=== PATIENT | male | born 1955 | race Caucasian/White ===

== ENCOUNTER 2019-04-28 23:34 | Emergency (ER) | payer MEDICAID ==
[~2019-04-28] VITALS: Ht 154.9 cm; Wt 72.0 kg
[~2019-04-28 23:34] MED LIST: AMLO10TA80 PO; ASPI-1160 PO; BENA10TA10 PO; FOLI1TAB87 PO; LISI-604 PO; METF-414 PO; METF-416 PO; NVLG73 SUBCUT; OMEP20CA5 PO; PIOG30TA10 PO; SIMV20TA6 PO; TRAM50TA94 PO
[2019-04-29 01:32] LABS: CLARITY URINE CLEAR (CLEAR); COLOR URINE YELLOW (YELLOW); KETONES URINE NEGATIVE (NEGATIVE); LEUKOCYTE ESTERASE URINE NEGATIVE (NEGATIVE); NITRITE URINE NEGATIVE (NEGATIVE); OCCULT BLOOD URINE TRACE (NEGATIVE); PH URINE 5.5 (4.5-8.0); PROTEIN URINE 3+ (NEGATIVE); SPECIFIC GRAVITY URINE 1.013 (1.005-1.030); UROBILINOGEN URINE 0.2 E.U./dL (0.2-1.0)
[2019-04-29] MEDS ORDERED: KETOROLAC 30MG/ML VIAL IV SCH (02:31)
[2019-04-29] MEDS ORDERED: SODIUM CHLORIDE 0.9% 1,000 ML IV ONE (02:31)
[2019-04-29 03:04] LABS: BASOPHILS % 0.9 % (0.0-2.0); EOSINOPHILS % 6.4 % (0.0-5.0); HEMATOCRIT. 35.9 % (42.0-52.0); HEMOGLOBIN. 12.2 g/dL (14.0-18.0); LYMPHOCYTES % 23.6 % (20.0-50.0); MEAN CORPUSCULAR HEMOGLOBIN 31.8 pg (28.0-32.0); MEAN CORPUSCULAR VOLUME 93.4 fL (80.0-94.0); MEAN PLATELET VOLUME 9.4 fl (7.4-10.4); MONOCYTES % 7.3 % (2.0-8.0); NEUTROPHILS % 61.8 % (40.0-76.0); PLATELET 250 x1000/uL (130-400); RED BLOOD CELL COUNT 3.85 mill/uL (4.7-6.1); RED CELL DISTRIBUTION WIDTH 13.3 % (11.6-14.6)
[2019-04-29 03:11] LABS: CHLORIDE 110 mEq/L (98-107)
[2019-04-29 03:12] LABS: PROTHROMBIN TIME 9.8 sec (9.6-11.0)
[2019-04-29] MEDS ORDERED: HYDROCODONE/ACETAMINOPHEN 5/325MG TABLET PO ONE (04:15)
[2019-04-29 05:40] VITALS: BP 129/69
== END 2019-04-29 06:01 | disposition home or self-care (01) ==
LOC: ER 23:34
DX: M54.16 Radiculopathy, lumbar region (principal); N28.9 Disorder of kidney and ureter, unspecified; E11.9 Type 2 diabetes mellitus without complications; I10 Essential (primary) hypertension; E78.00 Pure hypercholesterolemia, unspecified; Z79.82 Long term (current) use of aspirin; Z79.84 Long term (current) use of oral hypoglycemic drugs; Z79.899 Other long term (current) drug therapy; Z79.4 Long term (current) use of insulin; Z87.438 Personal history of other diseases of male genital organs; Z98.890 Other specified postprocedural states
CPT/HCPCS: 36415; 74176; 80053; 81003; 82962; 83690; 85025; 85610; 96374; 99284; J1885; Z7610

== ENCOUNTER 2019-11-15 17:18 | Inpatient (IN) | payer MEDICAID ==
[~2019-11-15] VITALS: Ht 157.5 cm; Wt 73.5 kg
[~2019-11-15 17:18] MED LIST changes: -BENA10TA10 PO; +BENA10TA74 PO; +OMEP20CA14 PO; -OMEP20CA5 PO; +SIMV-43 PO; -SIMV20TA6 PO
[2019-11-15] MEDS ORDERED: SODIUM CHLORIDE 0.9% 1,000 ML IV ONE (18:24)
[2019-11-15] MEDS ORDERED: DEXTROSE 50% WATER 50ML SYRINGE IV ONE (18:30)
[2019-11-15] MEDS ORDERED: ONDANSETRON HCL 4MG/2ML INJ IV ONE ×2 (18:30→20:30)
[2019-11-15 18:44] LABS: BASOPHILS % 0.8 % (0.0-2.0); EOSINOPHILS % 1.1 % (0.0-5.0); HEMATOCRIT. 35.5 % (42.0-52.0); LYMPHOCYTES % 10.3 % (20.0-50.0); MEAN CORPUSCULAR HEMOGLOBIN 31.9 pg (28.0-32.0); MEAN CORPUSCULAR VOLUME 94.6 fL (80.0-94.0); MEAN PLATELET VOLUME 8.8 fl (7.4-10.4); MONOCYTES % 5.6 % (2.0-8.0); NEUTROPHILS % 82.2 % (40.0-76.0); PLATELET 245 x1000/uL (130-400); RED BLOOD CELL COUNT 3.75 mill/uL (4.7-6.1); RED CELL DISTRIBUTION WIDTH 13.2 % (11.6-14.6)
[2019-11-15 18:49] LABS: CHLORIDE 112 mEq/L (98-107)
[2019-11-15 18:53] LABS: AMYLASE 95 IU/L (25-115)
[2019-11-15 18:54] LABS: ETHANOL BLOOD < 10 mg/dL
[2019-11-15 19:02] LABS: CREATINE KINASE 362 IU/L (39-308); CREATINE KINASE MB FRACTION 4.9 ng/mL (0.5-3.6)
[2019-11-15 19:23] LABS: CLARITY URINE CLEAR (CLEAR); COLOR URINE YELLOW (YELLOW); KETONES URINE NEGATIVE (NEGATIVE); LEUKOCYTE ESTERASE URINE NEGATIVE (NEGATIVE); NITRITE URINE NEGATIVE (NEGATIVE); OCCULT BLOOD URINE TRACE (NEGATIVE); PROTEIN URINE 3+ (NEGATIVE); SPECIFIC GRAVITY URINE 1.014 (1.005-1.030); UROBILINOGEN URINE 0.2 E.U./dL (0.2-1.0)
[2019-11-15 19:41] LABS: *AMPHETAMINES SCREEN URINE NEGATIVE (NEGATIVE); *BARBITURATES SCREEN URINE NEGATIVE (NEGATIVE); *BENZODIAZEPINES SCREEN URINE NEGATIVE (NEGATIVE); *COCAINE SCREEN URINE NEGATIVE (NEGATIVE); METHADONE URINE SCREEN NEGATIVE (NEGATIVE); OPIATES URINE SCREEN NEGATIVE (NEGATIVE)
[2019-11-15 19:42] LABS: CANNABINOID URINE SCREEN NEGATIVE (NEGATIVE); PHENCYCLIDINE URINE SCREEN NEGATIVE (NEGATIVE)
[2019-11-15] MEDS ORDERED: HYDRALAZINE 20MG/ML VIAL IV ONE (22:15)
[2019-11-16 00:15] VITALS: BP 135/77
[2019-11-16] MEDS ORDERED: DEXTROSE 50% WATER 50ML SYRINGE IV PRN (04:00)
[2019-11-16] MEDS ORDERED: ACETAMINOPHEN 325MG TABLET PO PRN (04:00)
[2019-11-16 06:23] VITALS: BP 127/67
[2019-11-16] MEDS: BLOOD SUGAR DIAGNOSTIC STRIP TEST SCH ×4 (06:46→20:53)
[2019-11-16] MEDS: OMEPRAZOLE 20MG CAPSULE EXTENDED RELEASE PO SCH (07:02)
[2019-11-16] MEDS ORDERED: INSULIN LISPRO 100 UNITS/ML SUBCUT SCH (07:40)
[2019-11-16 07:57] VITALS: BP 135/73
[2019-11-16] MEDS: ASPIRIN 81MG EC TABLET PO SCH (08:48)
[2019-11-16] MEDS: LISINOPRIL 20MG TABLET PO SCH (08:49)
[2019-11-16] MEDS: AMLODIPINE 10MG TABLET PO SCH (08:49)
[2019-11-16] MEDS ORDERED: BENAZEPRIL 10MG TABLET PO SCH (09:00)
[2019-11-16] MEDS ORDERED: MEDICATION NOT ON FORMULARY EA (Simvastatin 20 MG) PO SCH (09:00)
[2019-11-16 12:00] VITALS: BP 125/57
[2019-11-16 13:22] LABS: BASOPHILS % 0.8 % (0.0-2.0); EOSINOPHILS % 4.3 % (0.0-5.0); HEMOGLOBIN. 10.9 g/dL (14.0-18.0); LYMPHOCYTES % 18.8 % (20.0-50.0); MEAN CORPUSCULAR HEMOGLOBIN 31.7 pg (28.0-32.0); MEAN CORPUSCULAR VOLUME 95.4 fL (80.0-94.0); MONOCYTES % 8.7 % (2.0-8.0); NEUTROPHILS % 67.4 % (40.0-76.0); PLATELET 227 x1000/uL (130-400); RED BLOOD CELL COUNT 3.46 mill/uL (4.7-6.1); RED CELL DISTRIBUTION WIDTH 13.1 % (11.6-14.6)
[2019-11-16] MEDS: SODIUM CHLORIDE 0.45% 1,000 ML IV SCH (14:26)
[2019-11-16 16:00] VITALS: BP 139/75
[2019-11-16 20:00] VITALS: BP 137/69
[2019-11-16] MEDS ORDERED: ATORVASTATIN CALCIUM 10MG TABLET PO SCH (21:00)
[2019-11-17] VITALS: BP 128/66
[2019-11-17] MEDS: SODIUM CHLORIDE 0.45% 1,000 ML IV SCH ×2 (00:06→10:32)
[2019-11-17 04:00] VITALS: BP 151/75
[2019-11-17] MEDS: OMEPRAZOLE 20MG CAPSULE EXTENDED RELEASE PO SCH (06:28)
[2019-11-17] MEDS: BLOOD SUGAR DIAGNOSTIC STRIP TEST SCH ×2 (06:28→12:06)
[2019-11-17 06:35] LABS: BASOPHILS % 1.2 % (0.0-2.0); EOSINOPHILS % 7.2 % (0.0-5.0); HEMATOCRIT. 32.6 % (42.0-52.0); HEMOGLOBIN. 10.7 g/dL (14.0-18.0); LYMPHOCYTES % 25.6 % (20.0-50.0); MEAN CORPUSCULAR HEMOGLOBIN 31.7 pg (28.0-32.0); MEAN CORPUSCULAR VOLUME 95.9 fL (80.0-94.0); MEAN PLATELET VOLUME 9.1 fl (7.4-10.4); MONOCYTES % 9.6 % (2.0-8.0); NEUTROPHILS % 56.4 % (40.0-76.0); PLATELET 233 x1000/uL (130-400); RED CELL DISTRIBUTION WIDTH 13.3 % (11.6-14.6)
[2019-11-17] MEDS: ASPIRIN 81MG EC TABLET PO SCH (07:48)
[2019-11-17] MEDS: LISINOPRIL 20MG TABLET PO SCH (07:48)
[2019-11-17] MEDS: AMLODIPINE 10MG TABLET PO SCH (07:48)
[2019-11-17 12:00] VITALS: BP 160/71
[2019-11-17] MEDS ORDERED: BLOOD SUGAR DIAGNOSTIC STRIP TEST SCH (12:10)
[2019-11-17] MEDS ORDERED: DEXTROSE 50% WATER 50ML SYRINGE IV PRN (12:15)
[2019-11-17] MEDS ORDERED: INSULIN LISPRO 100 UNITS/ML SUBCUT SCH (12:40)
[2019-11-17] MEDS ORDERED: PNEUMOCOCCAL 23-VAL P-SAC VAC 0.5 ML IM ONE (16:30)
== END 2019-11-17 16:57 | disposition home or self-care (01) | DRG 420 ==
LOC: ER 18:00 → ENRESERV 23:42 → 8WST 11-16 00:16
PROVIDERS: ADMIT Internal Medicine; ATTEND Internal Medicine
DX: E11.649 Type 2 diabetes mellitus with hypoglycemia without coma (principal); G93.41 Metabolic encephalopathy; N18.4 Chronic kidney disease, stage 4 (severe); E11.22 Type 2 diabetes mellitus with diabetic chronic kidney disease; E87.8 Other disorders of electrolyte and fluid balance, not elsewhere classified; D64.9 Anemia, unspecified; E78.00 Pure hypercholesterolemia, unspecified; E78.5 Hyperlipidemia, unspecified; I12.9 Hypertensive chronic kidney disease with stage 1 through stage 4 chronic kidney disease, or unspecified chronic kidney disease; I16.0 Hypertensive urgency; M62.82 Rhabdomyolysis; N40.0 Benign prostatic hyperplasia without lower urinary tract symptoms; Z79.4 Long term (current) use of insulin; Z79.899 Other long term (current) drug therapy
CPT/HCPCS: 36415; 71045; 80048; 80053; 80305; 80320; 81003; 82150; 82550; 82553; 82962; 83036; 83880; 84443; 84484; 85025; 87804; 90732; 93005; 93970; 99285; J0360; J1815; J2405; J7030; G0480

== ENCOUNTER 2020-06-15 14:31 | Emergency (ER) | payer MEDICAID ==
[~2020-06-15] VITALS: Ht 157.5 cm; Wt 71.0 kg
[~2020-06-15 14:31] MED LIST changes: -BENA10TA74 PO; +LIDOCAINE HCL/PF 1% 2ML VIAL ONE; -METF-414 PO; -METF-416 PO; -NVLG73 SUBCUT; -PIOG30TA10 PO
[2020-06-15] MEDS ORDERED: ONDANSETRON HCL 4MG/2ML INJ IV ONE (15:00)
[2020-06-15] MEDS ORDERED: SODIUM CHLORIDE 0.9% 1,000 ML IV ONE ×2 (15:00→17:30)
[2020-06-15 15:15] LABS: BASOPHILS % 0.5 % (0.0-2.0); CLARITY URINE CLEAR (CLEAR); COLOR URINE YELLOW (YELLOW); EOSINOPHILS % 2.3 % (0.0-5.0); HEMOGLOBIN. 13.3 g/dL (14.0-18.0); KETONES URINE NEGATIVE (NEGATIVE); LEUKOCYTE ESTERASE URINE NEGATIVE (NEGATIVE); LYMPHOCYTES % 12.6 % (20.0-50.0); MEAN CORPUSCULAR VOLUME 93.9 fL (80.0-94.0); MEAN PLATELET VOLUME 9.9 fl (7.4-10.4); NEUTROPHILS % 79.6 % (40.0-76.0); NITRITE URINE NEGATIVE (NEGATIVE); OCCULT BLOOD URINE TRACE (NEGATIVE); PH URINE 6.5 (4.5-8.0); PLATELET 207 x1000/uL (130-400); PROTEIN URINE 4+ (NEGATIVE); RED BLOOD CELL COUNT 4.16 mill/uL (4.7-6.1); RED CELL DISTRIBUTION WIDTH 13.4 % (11.6-14.6); SPECIFIC GRAVITY URINE 1.021 (1.005-1.030); UROBILINOGEN URINE 0.2 E.U./dL (0.2-1.0)
[2020-06-15 15:18] LABS: CHLORIDE 104 mEq/L (98-107)
[2020-06-15 15:21] LABS: INR 0.9; PROTHROMBIN TIME 9.8 sec (9.6-11.0)
[2020-06-15] MEDS ORDERED: INSULIN REGULAR (HUMULIN R) UD 100 UNITS/ML SYR SUBCUT ONE (16:00)
[2020-06-15] MEDS ORDERED: INSULIN REGULAR (HUMULIN R) 300UNITS/3ML SUBCUT NR (16:20)
[2020-06-15 16:28] LABS: BG BASE EXCESS -4.9 mmol/L (-2.0-2.0); BG CARBOXYHEMOGLOBIN 0.3 % (0.5-1.5); BG DEOXYHEMOGLOBIN 4.5 % (0.0-5.0); BG FRACTION INSPIRED OXYGEN 21; BG HCO3 ACT 20.7 mmol/L (22.0-26.0); BG METHEMOGLOBIN 0.3 % (0.0-1.5); BG OXYGEN SATURATION 95.5 % (92.0-98.5); BG OXYHEMOGLOBIN 94.9 % (94.0-97.0); BG PCO2 39.9 mmHg (35.0-45.0); BG PH 7.332 (7.350-7.450); BG SAMPLE SITE RIGHT BRACHIAL; BG TOTAL HEMOGLOBIN 12.8 g/dL (12.0-18.0); BG VENT MODE ROOM AIR
[2020-06-15] MEDS ORDERED: FAMOTIDINE 20MG/2ML VIAL IV NR (16:30)
[2020-06-15] MEDS ORDERED: AMLODIPINE 5MG TABLET PO ONE (16:45)
[2020-06-15 17:49] LABS: D-DIMER 0.82 mg/L FEU (<0.50)
[2020-06-15] MEDS ORDERED: HYDRALAZINE 20MG/ML VIAL IV SCH (18:30)
[2020-06-15 20:46] VITALS: BP 161/85
== END 2020-06-15 21:13 | disposition short-term general hospital (02) ==
LOC: ER 14:31
DX: N17.9 Acute kidney failure, unspecified (principal); E11.65 Type 2 diabetes mellitus with hyperglycemia; Z20.828 Contact with and (suspected) exposure to other viral communicable diseases; R06.02 Shortness of breath; R43.2 Parageusia; Z79.4 Long term (current) use of insulin
CPT/HCPCS: 36415; 36600; 71045; 80053; 81003; 82010; 82375; 82550; 82728; 82805; 82962; 83615; 83690; 83880; 84145; 84484; 85025; 85379; 85384; 85610; 86140; 87635; 93005; 96361; 96372; 96374; 96375; 99285; J0360; J1815; J2405; J3490

== ENCOUNTER 2021-02-15 14:42 | Inpatient (IN) | payer OTHER, MEDICAID ==
[~2021-02-15] VITALS: Ht 157.5 cm; Wt 70.3 kg
[~2021-02-15 14:42] MED LIST changes: +AMLO10TA4 MT; +ATOR10TA MT; +BLOO-1465 MT; +FAMO-135 PO; +FINA5TAB11 PO; +GLIP5TAB12 MT; +HYDR-4135 MT; +HYDR100T26 MT; +INSLIS SUBCUT; +INSU100I28 SQ; +LANC1COM2 MC; -LIDOCAINE HCL/PF 1% 2ML VIAL ONE; -LISI-604 PO; -OMEP20CA14 PO; +ONDA8TAB13 PO; +SIME125C PO; -SIMV-43 PO; +TAMS-11 PO; -TRAM50TA94 PO
[2021-02-15 15:59] LABS: CHLORIDE 112 mEq/L (98-107)
[2021-02-15 16:00] LABS: BASOPHILS % 0.8 % (0.0-2.0); EOSINOPHILS % 5.2 % (0.0-5.0); HEMOGLOBIN. 11.9 g/dL (14.0-18.0); LYMPHOCYTES % 17.4 % (20.0-50.0); MEAN CORPUSCULAR HEMOGLOBIN 33.1 pg (28.0-32.0); MEAN CORPUSCULAR VOLUME 94.5 fL (80.0-94.0); MEAN PLATELET VOLUME 9.7 fl (7.4-10.4); NEUTROPHILS % 69.6 % (40.0-76.0); PLATELET 225 x1000/uL (130-400); RED CELL DISTRIBUTION WIDTH 13.9 % (11.6-14.6)
[2021-02-15 16:02] LABS: INR 0.9
[2021-02-15] MEDS ORDERED: PIPERACILLIN SODIUM/TAZOBACTAM 4.5 G in DEXT 5% WATER 100 ML IV SCH (17:30)
[2021-02-15 22:18] VITALS: BP 188/89
[2021-02-15 23:27] VITALS: BP 188/84
[2021-02-16] VITALS: BP 189/85
[2021-02-16] MEDS ORDERED: DEXTROSE 50% WATER 50ML SYRINGE IV PRN (00:45)
[2021-02-16] MEDS: CLONIDINE 0.1MG TABLET PO PRN ×3 (01:15→18:20)
[2021-02-16] MEDS ORDERED: BENA10TA74 PO (02:45)
[2021-02-16] MEDS ORDERED: DOCU-150 PO (02:47)
[2021-02-16] MEDS ORDERED: FURO20TA4 PO (02:48)
[2021-02-16] MEDS ORDERED: INSU100I24 SQ (02:49)
[2021-02-16] MEDS ORDERED: INSU100I32 SQ (02:50)
[2021-02-16] MEDS ORDERED: VANCOMYCIN 500 MG PREMIX 100 ML IV SCH ×2 (03:00→10:00)
[2021-02-16 04:00] VITALS: BP 142/79
[2021-02-16] MEDS: PIPERACILLIN/TAZOBACTAM 2.25 G in DEXTROSE 5% WATER 50 ML IV SCH ×3 (04:29→18:20)
[2021-02-16] MEDS: PANTOPRAZOLE 40MG DR TABLET PO SCH (05:49)
[2021-02-16] MEDS: BLOOD SUGAR DIAGNOSTIC STRIP TEST SCH ×4 (05:49→20:52)
[2021-02-16] MEDS ORDERED: PIPERACILLIN/TAZOBACTAM 3.375 G/VIAL IV SCH (06:00)
[2021-02-16] MEDS ORDERED: INSULIN LISPRO 100 UNITS/ML SUBCUT SCH (07:15)
[2021-02-16 08:00] VITALS: BP 183/79
[2021-02-16] MEDS: FUROSEMIDE 40MG TABLET PO SCH (08:59)
[2021-02-16] MEDS: HEPARIN 5000 UNITS/ML VIAL SUBCUT SCH ×2 (09:00→21:25)
[2021-02-16] MEDS: PREDNISONE 20MG TABLET PO SCH (10:54)
[2021-02-16] MEDS: LISINOPRIL 10MG TABLET PO SCH (10:55)
[2021-02-16 12:00] VITALS: BP 160/91
[2021-02-16 12:02] LABS: BASOPHILS % 0.6 % (0.0-2.0); EOSINOPHILS % 6.4 % (0.0-5.0); HEMATOCRIT. 32.7 % (42.0-52.0); HEMOGLOBIN. 11.2 g/dL (14.0-18.0); LYMPHOCYTES % 19.2 % (20.0-50.0); MEAN CORPUSCULAR HEMOGLOBIN 32.4 pg (28.0-32.0); MEAN CORPUSCULAR VOLUME 94.6 fL (80.0-94.0); MEAN PLATELET VOLUME 9.7 fl (7.4-10.4); MONOCYTES % 6.6 % (2.0-8.0); NEUTROPHILS % 67.2 % (40.0-76.0); PLATELET 228 x1000/uL (130-400); RED BLOOD CELL COUNT 3.45 mill/uL (4.7-6.1); RED CELL DISTRIBUTION WIDTH 13.7 % (11.6-14.6)
[2021-02-16] MEDS: INSULIN LISPRO 100 UNITS/ML SUBCUT SCH ×5 (12:26→21:22)
[2021-02-16] MEDS ORDERED: LIDOCAINE HCL 1% 20ML VIAL (Pyxis) INJ ONE (14:35)
[2021-02-16 16:00] VITALS: BP 139/64
[2021-02-16 20:00] VITALS: BP 195/90
[2021-02-16] MEDS ORDERED: LABETALOL 5MG/ML SYR 20 MG/4 ML SYRINGE IV NR (20:15)
[2021-02-16] MEDS ORDERED: HYDRALAZINE HCL 50MG TABLET PO SCH ×2 (21:00)
[2021-02-16] MEDS: HYDRALAZINE HCL 50MG TABLET PO SCH (21:25)
[2021-02-16] MEDS: INSULIN GLARGINE UD 100 UNITS/ML SYR SUBCUT SCH (21:40)
[2021-02-17] VITALS: BP 150/73
[2021-02-17] MEDS ORDERED: CLONIDINE 0.2MG TABLET PO PRN (00:45)
[2021-02-17] MEDS: PIPERACILLIN/TAZOBACTAM 2.25 G in DEXTROSE 5% WATER 50 ML IV SCH ×3 (03:53→18:45)
[2021-02-17 04:00] VITALS: BP 181/90
[2021-02-17] MEDS ORDERED: LABETALOL 5MG/ML SYR 20 MG/4 ML SYRINGE IV SCH (04:15)
[2021-02-17] MEDS: BLOOD SUGAR DIAGNOSTIC STRIP TEST SCH ×4 (06:18→21:44)
[2021-02-17] MEDS: PANTOPRAZOLE 40MG DR TABLET PO SCH (06:26)
[2021-02-17] MEDS: INSULIN LISPRO 100 UNITS/ML SUBCUT SCH ×7 (06:27→21:31)
[2021-02-17 06:56] LABS: BASOPHILS % 0.2 % (0.0-2.0); EOSINOPHILS % 0.1 % (0.0-5.0); HEMATOCRIT. 33.2 % (42.0-52.0); HEMOGLOBIN. 11.1 g/dL (14.0-18.0); LYMPHOCYTES % 9.3 % (20.0-50.0); MEAN CORPUSCULAR HEMOGLOBIN 31.6 pg (28.0-32.0); MEAN CORPUSCULAR VOLUME 94.3 fL (80.0-94.0); MEAN PLATELET VOLUME 10.1 fl (7.4-10.4); MONOCYTES % 5.2 % (2.0-8.0); NEUTROPHILS % 85.2 % (40.0-76.0); PLATELET 215 x1000/uL (130-400); RED BLOOD CELL COUNT 3.52 mill/uL (4.7-6.1); RED CELL DISTRIBUTION WIDTH 13.5 % (11.6-14.6)
[2021-02-17 08:00] VITALS: BP 122/83
[2021-02-17] MEDS: HYDRALAZINE HCL 50MG TABLET PO SCH ×2 (09:34→21:00)
[2021-02-17] MEDS: FUROSEMIDE 40MG TABLET PO SCH (09:34)
[2021-02-17] MEDS: PREDNISONE 20MG TABLET PO SCH (09:34)
[2021-02-17] MEDS: HEPARIN 5000 UNITS/ML VIAL SUBCUT SCH ×2 (09:35→21:29)
[2021-02-17] MEDS: LISINOPRIL 10MG TABLET PO SCH (09:35)
[2021-02-17] MEDS: AMLODIPINE 10MG TABLET PO SCH (09:35)
[2021-02-17 12:00] VITALS: BP 160/69
[2021-02-17 16:00] VITALS: BP 90/56
[2021-02-17 20:00] VITALS: BP 102/55
[2021-02-17 20:04] LABS: HEMOGLOBIN. 10.2 g/dL (14.0-18.0); MEAN CORPUSCULAR HEMOGLOBIN 31.6 pg (28.0-32.0); MEAN CORPUSCULAR VOLUME 95.7 fL (80.0-94.0); MEAN PLATELET VOLUME 9.8 fl (7.4-10.4); PLATELET 227 x1000/uL (130-400); RED BLOOD CELL COUNT 3.24 mill/uL (4.7-6.1); RED CELL DISTRIBUTION WIDTH 13.8 % (11.6-14.6)
[2021-02-17 20:06] LABS: CHLORIDE 107 mEq/L (98-107)
[2021-02-17] MEDS: INSULIN GLARGINE UD 100 UNITS/ML SYR SUBCUT SCH (21:30)
[2021-02-17 21:43] LABS: PLATELET ESTIMATE NORMAL
[2021-02-18] VITALS: BP 119/51
[2021-02-18] MEDS: PIPERACILLIN/TAZOBACTAM 2.25 G in DEXTROSE 5% WATER 50 ML IV SCH ×3 (02:47→18:59)
[2021-02-18 04:00] VITALS: BP 147/71
[2021-02-18] MEDS: BLOOD SUGAR DIAGNOSTIC STRIP TEST SCH ×4 (06:53→21:33)
[2021-02-18] MEDS: FAMOTIDINE 20MG TABLET PO SCH (07:05)
[2021-02-18] MEDS: INSULIN LISPRO 100 UNITS/ML SUBCUT SCH ×7 (07:06→21:31)
[2021-02-18 08:00] VITALS: BP 160/80
[2021-02-18] MEDS: LISINOPRIL 10MG TABLET PO SCH (09:09)
[2021-02-18] MEDS: HYDRALAZINE HCL 50MG TABLET PO SCH ×2 (09:09→21:30)
[2021-02-18] MEDS: FUROSEMIDE 40MG TABLET PO SCH (09:09)
[2021-02-18] MEDS: AMLODIPINE 10MG TABLET PO SCH (09:10)
[2021-02-18] MEDS: PREDNISONE 20MG TABLET PO SCH (09:10)
[2021-02-18] MEDS: HEPARIN 5000 UNITS/ML VIAL SUBCUT SCH ×2 (09:10→21:31)
[2021-02-18 12:00] VITALS: BP 145/76
[2021-02-18] MEDS ORDERED: VANCOMYCIN 500 MG PREMIX 100 ML IV SCH (12:00)
[2021-02-18 16:00] VITALS: BP 142/68
[2021-02-18 16:58] LABS: HEMATOCRIT. 33.1 % (42.0-52.0); HEMOGLOBIN. 11.2 g/dL (14.0-18.0); MEAN CORPUSCULAR HEMOGLOBIN 31.7 pg (28.0-32.0); MEAN CORPUSCULAR VOLUME 94.1 fL (80.0-94.0); MEAN PLATELET VOLUME 9.7 fl (7.4-10.4); PLATELET 238 x1000/uL (130-400); RED BLOOD CELL COUNT 3.52 mill/uL (4.7-6.1)
[2021-02-18 17:28] LABS: PLATELET ESTIMATE NORMAL
[2021-02-18 20:00] VITALS: BP 131/73
[2021-02-18] MEDS ORDERED: HYDROCODONE/ACETAMINOPHEN 5/325MG TABLET PO PRN (21:15)
[2021-02-18] MEDS ORDERED: ONDANSETRON HCL 4MG/2ML INJ IV PRN (21:15)
[2021-02-18] MEDS ORDERED: ACETAMINOPHEN 325MG TABLET PO PRN (21:15)
[2021-02-18] MEDS: INSULIN GLARGINE UD 100 UNITS/ML SYR SUBCUT SCH (21:34)
[2021-02-19] VITALS: BP 146/76
[2021-02-19] MEDS: PIPERACILLIN/TAZOBACTAM 2.25 G in DEXTROSE 5% WATER 50 ML IV SCH ×2 (03:27→12:01)
[2021-02-19 04:00] VITALS: BP 139/85
[2021-02-19] MEDS: BLOOD SUGAR DIAGNOSTIC STRIP TEST SCH ×3 (05:49→17:35)
[2021-02-19] MEDS: FAMOTIDINE 20MG TABLET PO SCH (06:00)
[2021-02-19] MEDS: INSULIN LISPRO 100 UNITS/ML SUBCUT SCH ×6 (06:22→17:41)
[2021-02-19 07:01] LABS: BASOPHILS % 0.2 % (0.0-2.0); EOSINOPHILS % 0.1 % (0.0-5.0); HEMATOCRIT. 34.6 % (42.0-52.0); HEMOGLOBIN. 11.8 g/dL (14.0-18.0); LYMPHOCYTES % 9.8 % (20.0-50.0); MEAN CORPUSCULAR HEMOGLOBIN 31.9 pg (28.0-32.0); MEAN CORPUSCULAR VOLUME 93.8 fL (80.0-94.0); MEAN PLATELET VOLUME 9.8 fl (7.4-10.4); MONOCYTES % 6.3 % (2.0-8.0); NEUTROPHILS % 83.6 % (40.0-76.0); PLATELET 270 x1000/uL (130-400); RED BLOOD CELL COUNT 3.69 mill/uL (4.7-6.1); RED CELL DISTRIBUTION WIDTH 13.5 % (11.6-14.6)
[2021-02-19 08:00] VITALS: BP 158/65
[2021-02-19] MEDS: FUROSEMIDE 40MG TABLET PO SCH (09:29)
[2021-02-19] MEDS: PREDNISONE 20MG TABLET PO SCH (09:29)
[2021-02-19] MEDS: AMLODIPINE 10MG TABLET PO SCH (09:29)
[2021-02-19] MEDS: HEPARIN 5000 UNITS/ML VIAL SUBCUT SCH (09:30)
[2021-02-19] MEDS: LISINOPRIL 10MG TABLET PO SCH (09:30)
[2021-02-19] MEDS: HYDRALAZINE HCL 50MG TABLET PO SCH (09:30)
[2021-02-19 12:00] VITALS: BP 145/67
[2021-02-19 16:00] VITALS: BP 140/69
[2021-02-19 18:19] VITALS: BP 140/69
== END 2021-02-19 18:35 | disposition home or self-care (01) | DRG 252 ==
LOC: ER 14:42 → 5WST 17:19 → ENRESERV 21:12
PROVIDERS: ADMIT Internal Medicine; ATTEND Internal Medicine
PROC: 05PY03Z Removal of Infusion Device from Upper Vein, Open Approach (ICD-10-PCS; principal; 2021-02-16)
PROC: 0JPV3XZ Removal of Tunneled Vascular Access Device from Upper Extremity Subcutaneous Tissue and Fascia, Percutaneous Approach (ICD-10-PCS; 2021-02-16)
DX: T80.212A Local infection due to central venous catheter, initial encounter (principal); N18.6 End stage renal disease; E46 Unspecified protein-calorie malnutrition; I12.0 Hypertensive chronic kidney disease with stage 5 chronic kidney disease or end stage renal disease; H66.92 Otitis media, unspecified, left ear; I16.0 Hypertensive urgency; D64.9 Anemia, unspecified; E11.22 Type 2 diabetes mellitus with diabetic chronic kidney disease; N40.0 Benign prostatic hyperplasia without lower urinary tract symptoms; E78.00 Pure hypercholesterolemia, unspecified; Z83.3 Family history of diabetes mellitus; Y84.8 Other medical procedures as the cause of abnormal reaction of the patient, or of later complication, without mention of misadventure at the time of the procedure; E11.65 Type 2 diabetes mellitus with hyperglycemia; Y84.1 Kidney dialysis as the cause of abnormal reaction of the patient, or of later complication, without mention of misadventure at the time of the procedure; T38.0X5A Adverse effect of glucocorticoids and synthetic analogues, initial encounter; Y92.89 Other specified places as the place of occurrence of the external cause; Z68.28 Body mass index [BMI] 28.0-28.9, adult; Z99.2 Dependence on renal dialysis; Z82.49 Family history of ischemic heart disease and other diseases of the circulatory system; Z88.8 Allergy status to other drugs, medicaments and biological substances; Z79.4 Long term (current) use of insulin; Z79.899 Other long term (current) drug therapy
CPT/HCPCS: 36415; 36589; 70486; 71045; 80048; 80053; 80202; 82962; 83036; 84145; 85025; 93005; 97161; 99285; J1644; J1815; J2543; J3370; J3490; J7040; J7060; J7512

== ENCOUNTER 2022-01-27 00:10 | Emergency (ER) | payer OTHER ==
[~2022-01-27] VITALS: Ht 165.1 cm; Wt 71.0 kg
[~2022-01-27 00:10] MED LIST changes: -AMLO10TA4 MT; -AMLO10TA80 PO; -ASPI-1160 PO; -ATOR10TA MT; +BENA10TA74 PO; -BLOO-1465 MT; +DOCU-150 PO; -FAMO-135 PO; -FINA5TAB11 PO; -FOLI1TAB87 PO; +FURO20TA4 PO; -GLIP5TAB12 MT; -HYDR-4135 MT; -HYDR100T26 MT; -INSLIS SUBCUT; +INSU100I24 SQ; -INSU100I28 SQ; +INSU100I32 SQ; -LANC1COM2 MC; -ONDA8TAB13 PO; -SIME125C PO; -TAMS-11 PO
[2022-01-27] MEDS ORDERED: ASPIRIN 81MG TABLET PO ONE (00:45)
[2022-01-27 02:17] LABS: BASOPHILS % 0.8 % (0.0-2.0); EOSINOPHILS % 5.1 % (0.0-5.0); HEMATOCRIT. 34.8 % (42.0-52.0); HEMOGLOBIN. 11.7 g/dL (14.0-18.0); LYMPHOCYTES % 10.2 % (20.0-50.0); MEAN CORPUSCULAR HEMOGLOBIN 31.1 pg (28.0-32.0); MEAN CORPUSCULAR VOLUME 92.7 fL (80.0-94.0); MEAN PLATELET VOLUME 8.5 fl (7.4-10.4); MONOCYTES % 9.2 % (2.0-8.0); NEUTROPHILS % 74.7 % (40.0-76.0); PLATELET 150 x1000/uL (130-400); RED BLOOD CELL COUNT 3.75 mill/uL (4.7-6.1); RED CELL DISTRIBUTION WIDTH 13.8 % (11.6-14.6)
[2022-01-27 02:29] LABS: CHLORIDE 95 mEq/L (98-107)
[2022-01-27] MEDS ORDERED: FUROSEMIDE 100MG/10ML VIAL IVP ONE (03:00)
[2022-01-27 07:00] VITALS: BP 166/75
== END 2022-01-27 07:15 | disposition short-term general hospital (02) ==
LOC: ER 00:10
DX: I16.0 Hypertensive urgency (principal); I12.0 Hypertensive chronic kidney disease with stage 5 chronic kidney disease or end stage renal disease; N18.6 End stage renal disease; Z99.2 Dependence on renal dialysis
CPT/HCPCS: 36415; 71045; 80053; 83880; 84484; 85025; 93005; 96374; 99285; J1940

== ENCOUNTER 2022-03-27 18:33 | Inpatient (IN) | payer OTHER, MEDICAID ==
[~2022-03-27] VITALS: Ht 154.9 cm; Wt 61.8 kg
[2022-03-27] MEDS ORDERED: INSULIN REGULAR (HUMULIN R) 300UNITS/3ML VIAL IV NR (21:30)
[2022-03-27] MEDS ORDERED: DEXTROSE 50% WATER 50ML SYRINGE IV NR (21:30)
[2022-03-27] MEDS ORDERED: ONDANSETRON HCL 4MG/2ML INJ IV ONE (23:30)
[2022-03-28] MEDS ORDERED: INSULIN REGULAR (HUMULIN R) 300UNITS/3ML VIAL IV SCH (02:15)
[2022-03-28] MEDS ORDERED: ONDANSETRON HCL 4MG/2ML INJ IV ONE (02:15)
[2022-03-28] MEDS ORDERED: AMLODIPINE 5MG TABLET PO ONE (02:15)
[2022-03-28] MEDS ORDERED: DEXTROSE 50% WATER 50ML SYRINGE IV SCH (02:15)
[2022-03-28 04:00] VITALS: BP 147/45
[2022-03-28 04:30] VITALS: BP 147/45
[2022-03-28] MEDS ORDERED: DEXTROSE 50% WATER 50ML SYRINGE IV PRN (04:45)
[2022-03-28] MEDS ORDERED: CEFEPIME 1,000 MG in DEXTROSE 5% WATER 50 ML IV SCH (05:00)
[2022-03-28] MEDS ORDERED: ACETAMINOPHEN 325MG SUPP PR PRN ×2 (06:00→10:00)
[2022-03-28] MEDS ORDERED: VANCOMYCIN 1GM PMX (XELLIA) 200 ML IV SCH (06:00)
[2022-03-28] MEDS: INSULIN LISPRO 100 UNITS/ML SUBCUT SCH ×3 (06:20→18:01)
[2022-03-28] MEDS: BLOOD SUGAR DIAGNOSTIC STRIP TEST SCH ×3 (06:20→17:56)
[2022-03-28 06:22] LABS: HEMATOCRIT. 27.5 % (42.0-52.0); MEAN CORPUSCULAR HEMOGLOBIN 32.1 pg (28.0-32.0); MEAN CORPUSCULAR VOLUME 97.8 fL (80.0-94.0); MEAN PLATELET VOLUME 8.5 fl (7.4-10.4); PLATELET 227 x1000/uL (130-400); RED BLOOD CELL COUNT 2.81 mill/uL (4.7-6.1); RED CELL DISTRIBUTION WIDTH 20.1 % (11.6-14.6)
[2022-03-28] MEDS ORDERED: ATROPINE SULFATE 1MG/ML VIAL IV PRN (06:45)
[2022-03-28] MEDS ORDERED: AMLO5TAB88 PO (07:06)
[2022-03-28] MEDS ORDERED: VALS160T28 PO (07:06)
[2022-03-28] MEDS ORDERED: ASPI-1497 MT (07:06)
[2022-03-28] MEDS ORDERED: CLON0.1T PO (07:06)
[2022-03-28] MEDS ORDERED: ONDA4TAB50 MT (07:06)
[2022-03-28] MEDS ORDERED: CLON0.2T PO (07:06)
[2022-03-28] MEDS ORDERED: FERR325T6 PO (07:06)
[2022-03-28] MEDS ORDERED: PHEN-910 PO (07:06)
[2022-03-28] MEDS ORDERED: DUTA0.5C37 PO (07:06)
[2022-03-28] MEDS ORDERED: TAMS-11 PO (07:06)
[2022-03-28] MEDS ORDERED: INSULIN LISPRO 100 UNITS/ML SUBCUT SCH (07:40)
[2022-03-28 08:00] VITALS: BP 118/47
[2022-03-28 08:28] LABS: PLATELET ESTIMATE NORMAL
[2022-03-28] MEDS: ACETAMINOPHEN 325MG TABLET PO PRN ×2 (08:28→21:14)
[2022-03-28] MEDS: SODIUM BICARBONATE 50 MEQ in DEXT 5%/0.45% NACL 1000ML 1,000 ML IV SCH (08:29)
[2022-03-28] MEDS ORDERED: *PATIENT'S OWN MEDICATION STORAGE XX SCH (10:00)
[2022-03-28 12:00] VITALS: BP 129/75
[2022-03-28 12:28] LABS: CHLORIDE 100 mEq/L (98-107)
[2022-03-28 13:26] LABS: HEPATITIS B SURFACE ANTIGEN NEGATIVE
[2022-03-28] MEDS: ONDANSETRON HCL 4MG/2ML INJ IV PRN (14:24)
[2022-03-28] MEDS ORDERED: VANCOMYCIN 500 MG in DEXT 5% WATER 100 ML IV SCH (15:00)
[2022-03-28 16:00] VITALS: BP 185/65
[2022-03-28] MEDS: HYDRALAZINE 20MG/ML VIAL IV PRN (16:19)
[2022-03-28] MEDS ORDERED: ONDANSETRON HCL 4MG/2ML INJ IV NR (16:30)
[2022-03-28 20:00] VITALS: BP 176/67
[2022-03-28] MEDS ORDERED: LACTULOSE 20G/30ML UDC PO NR (20:00)
[2022-03-28] MEDS: METOCLOPRAMIDE HCL 10MG/2ML VIAL IV PRN (21:13)
[2022-03-29] VITALS: BP 184/75
[2022-03-29] MEDS: BLOOD SUGAR DIAGNOSTIC STRIP TEST SCH ×4 (00:13→17:02)
[2022-03-29] MEDS: INSULIN LISPRO 100 UNITS/ML SUBCUT SCH ×4 (00:15→17:02)
[2022-03-29] MEDS: ONDANSETRON HCL 4MG/2ML INJ IV PRN ×3 (00:17→14:13)
[2022-03-29] MEDS: HYDRALAZINE 20MG/ML VIAL IV PRN ×2 (00:48→09:24)
[2022-03-29 04:00] VITALS: BP 158/77
[2022-03-29] MEDS: METOCLOPRAMIDE HCL 10MG/2ML VIAL IV PRN ×2 (05:38→22:43)
[2022-03-29 08:00] VITALS: BP 160/74
[2022-03-29 08:29] LABS: HEMATOCRIT. 29.1 % (42.0-52.0); HEMOGLOBIN. 9.5 g/dL (14.0-18.0); MEAN CORPUSCULAR HEMOGLOBIN 31.9 pg (28.0-32.0); MEAN CORPUSCULAR VOLUME 98.1 fL (80.0-94.0); MEAN PLATELET VOLUME 8.6 fl (7.4-10.4); PLATELET 206 x1000/uL (130-400); RED BLOOD CELL COUNT 2.97 mill/uL (4.7-6.1); RED CELL DISTRIBUTION WIDTH 19.4 % (11.6-14.6)
[2022-03-29] MEDS ORDERED: CEFEPIME HCL 1000MG/VIAL INJ IM SCH (09:00)
[2022-03-29] MEDS ORDERED: ASPIRIN 81MG EC TABLET PO SCH (10:00)
[2022-03-29] MEDS ORDERED: AMLODIPINE 5MG TABLET PO SCH (10:00)
[2022-03-29 10:14] LABS: PLATELET ESTIMATE NORMAL
[2022-03-29 12:00] VITALS: BP 143/55
[2022-03-29] MEDS: CEFEPIME 1,000 MG in DEXTROSE 5% WATER 50 ML IV SCH (12:18)
[2022-03-29 13:40] LABS: INR 1.1; PARTIAL THROMBOPLASTIN TIME 38.8 sec (23.4-31.0); PROTHROMBIN TIME 11.9 sec (9.6-11.0)
[2022-03-29 16:00] VITALS: BP 143/72
[2022-03-29 20:00] VITALS: BP 155/67
[2022-03-29] MEDS: AMLODIPINE 5MG TABLET PO SCH (22:36)
[2022-03-29] MEDS: ACETAMINOPHEN 325MG TABLET PO PRN (22:37)
[2022-03-30] VITALS: BP 135/68
[2022-03-30] MEDS: BLOOD SUGAR DIAGNOSTIC STRIP TEST SCH ×5 (00:16→23:20)
[2022-03-30] MEDS: TEMAZEPAM 15MG CAPSULE PO PRN (00:29)
[2022-03-30] MEDS: INSULIN LISPRO 100 UNITS/ML SUBCUT SCH ×5 (00:30→23:44)
[2022-03-30 04:00] VITALS: BP 111/61
[2022-03-30] MEDS: SODIUM BICARBONATE 50 MEQ in DEXT 5%/0.45% NACL 1000ML 1,000 ML IV SCH (05:11)
[2022-03-30] MEDS: ASPIRIN 81MG EC TABLET PO SCH (09:00)
[2022-03-30] MEDS: AMLODIPINE 5MG TABLET PO SCH ×2 (09:00→21:26)
[2022-03-30] MEDS ORDERED: CEFEPIME HCL 1000MG/VIAL INJ IV SCH (09:00)
[2022-03-30 10:10] LABS: HEMATOCRIT. 29.2 % (42.0-52.0); HEMOGLOBIN. 9.6 g/dL (14.0-18.0); MEAN CORPUSCULAR HEMOGLOBIN 32.5 pg (28.0-32.0); MEAN CORPUSCULAR VOLUME 99.3 fL (80.0-94.0); MEAN PLATELET VOLUME 9.3 fl (7.4-10.4); PLATELET 161 x1000/uL (130-400); RED BLOOD CELL COUNT 2.94 mill/uL (4.7-6.1); RED CELL DISTRIBUTION WIDTH 19.7 % (11.6-14.6)
[2022-03-30] MEDS: CEFEPIME 1,000 MG in DEXTROSE 5% WATER 50 ML IV SCH (14:03)
[2022-03-30] MEDS ORDERED: VANCOMYCIN 750 MG in DEXT 5% WATER 250 ML IV NR (18:00)
[2022-03-30 20:00] VITALS: BP 161/73
[2022-03-30] MEDS: ACETAMINOPHEN 325MG TABLET PO PRN (21:25)
[2022-03-30] MEDS: CEFAZOLIN 1000MG PREMIX 50 ML IV SCH (21:28)
[2022-03-31] VITALS: BP 152/73
[2022-03-31] MEDS: TEMAZEPAM 15MG CAPSULE PO PRN (03:03)
[2022-03-31 04:00] VITALS: BP 159/75
[2022-03-31] MEDS: BLOOD SUGAR DIAGNOSTIC STRIP TEST SCH ×4 (05:59→23:56)
[2022-03-31] MEDS: INSULIN LISPRO 100 UNITS/ML SUBCUT SCH ×3 (06:00→18:02)
[2022-03-31 06:20] LABS: HEMOGLOBIN. 8.9 g/dL (14.0-18.0); MEAN CORPUSCULAR HEMOGLOBIN 32.5 pg (28.0-32.0); MEAN CORPUSCULAR VOLUME 98.8 fL (80.0-94.0); MEAN PLATELET VOLUME 9.5 fl (7.4-10.4); PLATELET 160 x1000/uL (130-400); RED BLOOD CELL COUNT 2.73 mill/uL (4.7-6.1); RED CELL DISTRIBUTION WIDTH 19.3 % (11.6-14.6)
[2022-03-31 07:45] LABS: PLATELET ESTIMATE NORMAL
[2022-03-31 08:00] VITALS: BP 150/69
[2022-03-31] MEDS: ASPIRIN 81MG EC TABLET PO SCH (09:39)
[2022-03-31] MEDS: ACETAMINOPHEN 325MG TABLET PO PRN (09:39)
[2022-03-31] MEDS: AMLODIPINE 5MG TABLET PO SCH ×2 (09:40→21:06)
[2022-03-31 12:00] VITALS: BP 150/74
[2022-03-31 13:19] LABS: PLATELET ESTIMATE NORMAL
[2022-03-31 16:00] VITALS: BP 129/65
[2022-03-31] MEDS: BENAZEPRIL 10MG TABLET PO SCH (17:53)
[2022-03-31 20:00] VITALS: BP 155/70
[2022-03-31] MEDS: SODIUM BICARBONATE 50 MEQ in DEXT 5%/0.45% NACL 1000ML 1,000 ML IV SCH (22:00)
[2022-03-31] MEDS: CEFAZOLIN 1000MG PREMIX 50 ML IV SCH (22:11)
[2022-04-01] VITALS (7 sets, daily range): BP systolic 117–158; BP diastolic 49–76
[2022-04-01] MEDS: HYDRALAZINE 20MG/ML VIAL IV PRN (01:02)
[2022-04-01] MEDS: TEMAZEPAM 15MG CAPSULE PO PRN ×2 (01:44→23:16)
[2022-04-01] MEDS: BLOOD SUGAR DIAGNOSTIC STRIP TEST SCH ×4 (05:38→22:07)
[2022-04-01] MEDS: INSULIN LISPRO 100 UNITS/ML SUBCUT SCH ×5 (05:38→21:28)
[2022-04-01 07:34] LABS: HEMATOCRIT. 25.3 % (42.0-52.0); HEMOGLOBIN. 8.6 g/dL (14.0-18.0); MEAN CORPUSCULAR HEMOGLOBIN 33.3 pg (28.0-32.0); MEAN CORPUSCULAR VOLUME 97.3 fL (80.0-94.0); MEAN PLATELET VOLUME 9.3 fl (7.4-10.4); PLATELET 180 x1000/uL (130-400); RED CELL DISTRIBUTION WIDTH 19.2 % (11.6-14.6)
[2022-04-01] MEDS: BENAZEPRIL 10MG TABLET PO SCH ×3 (09:00→17:18)
[2022-04-01] MEDS: ASPIRIN 81MG EC TABLET PO SCH ×2 (09:00→11:42)
[2022-04-01] MEDS: AMLODIPINE 5MG TABLET PO SCH ×3 (09:00→21:27)
[2022-04-01 11:49] LABS: PLATELET ESTIMATE NORMAL
[2022-04-01] MEDS: SODIUM BICARBONATE 50 MEQ in DEXT 5%/0.45% NACL 1000ML 1,000 ML IV SCH (17:18)
[2022-04-01] MEDS: CEFAZOLIN 1000MG PREMIX 50 ML IV SCH (21:27)
[2022-04-01] MEDS: EPOETIN ALFA 4000UNITS/ML VIAL SUBCUT SCH (22:06)
[2022-04-02] VITALS (7 sets, daily range): BP systolic 134–172; BP diastolic 57–74
[2022-04-02] MEDS: HYDRALAZINE 20MG/ML VIAL IV PRN (04:49)
[2022-04-02] MEDS: BLOOD SUGAR DIAGNOSTIC STRIP TEST SCH ×3 (06:19→18:31)
[2022-04-02] MEDS: INSULIN LISPRO 100 UNITS/ML SUBCUT SCH ×3 (06:33→18:00)
[2022-04-02 07:02] LABS: BASOPHILS % 0.6 % (0.0-2.0); EOSINOPHILS % 7.9 % (0.0-5.0); HEMATOCRIT. 23.5 % (42.0-52.0); HEMOGLOBIN. 7.8 g/dL (14.0-18.0); LYMPHOCYTES % 17.6 % (20.0-50.0); MEAN CORPUSCULAR HEMOGLOBIN 32.7 pg (28.0-32.0); MEAN PLATELET VOLUME 8.7 fl (7.4-10.4); MONOCYTES % 14.5 % (2.0-8.0); NEUTROPHILS % 59.4 % (40.0-76.0); PLATELET 228 x1000/uL (130-400); RED BLOOD CELL COUNT 2.38 mill/uL (4.7-6.1); RED CELL DISTRIBUTION WIDTH 18.9 % (11.6-14.6)
[2022-04-02] MEDS: AMLODIPINE 5MG TABLET PO SCH ×2 (08:59→20:51)
[2022-04-02] MEDS: ASPIRIN 81MG EC TABLET PO SCH (08:59)
[2022-04-02] MEDS: BENAZEPRIL 10MG TABLET PO SCH ×2 (09:00→18:31)
[2022-04-02] MEDS: SODIUM BICARBONATE 50 MEQ in DEXT 5%/0.45% NACL 1000ML 1,000 ML IV SCH (13:12)
[2022-04-02] MEDS: CEFAZOLIN 1000MG PREMIX 50 ML IV SCH (21:16)
[2022-04-03] VITALS (7 sets, daily range): BP systolic 147–164; BP diastolic 56–70
[2022-04-03] MEDS: BLOOD SUGAR DIAGNOSTIC STRIP TEST SCH ×5 (00:13→23:14)
[2022-04-03] MEDS: INSULIN LISPRO 100 UNITS/ML SUBCUT SCH ×5 (00:18→23:34)
[2022-04-03 07:54] LABS: HEMATOCRIT. 23.5 % (42.0-52.0); HEMOGLOBIN. 7.8 g/dL (14.0-18.0); MEAN CORPUSCULAR HEMOGLOBIN 32.8 pg (28.0-32.0); MEAN CORPUSCULAR VOLUME 99.2 fL (80.0-94.0); MEAN PLATELET VOLUME 8.4 fl (7.4-10.4); PLATELET 323 x1000/uL (130-400); RED BLOOD CELL COUNT 2.37 mill/uL (4.7-6.1); RED CELL DISTRIBUTION WIDTH 18.8 % (11.6-14.6)
[2022-04-03] MEDS: BENAZEPRIL 10MG TABLET PO SCH ×2 (08:21→15:39)
[2022-04-03] MEDS: ASPIRIN 81MG EC TABLET PO SCH (08:21)
[2022-04-03] MEDS: AMLODIPINE 5MG TABLET PO SCH ×2 (08:22→21:19)
[2022-04-03] MEDS: SODIUM BICARBONATE 50 MEQ in DEXT 5%/0.45% NACL 1000ML 1,000 ML IV SCH (08:22)
[2022-04-03] MEDS: HYDRALAZINE 20MG/ML VIAL IV PRN ×2 (11:42→15:39)
[2022-04-03 13:16] LABS: PLATELET ESTIMATE NORMAL
[2022-04-03] MEDS ORDERED: IRON SUCROSE COMPLEX 100 MG/5 ML ML IV NR (23:18)
[2022-04-03] MEDS: CEFAZOLIN 1000MG PREMIX 50 ML IV SCH (23:55)
[2022-04-04] VITALS (19 sets, daily range): BP systolic 139–166; BP diastolic 45–71
[2022-04-04] MEDS: BLOOD SUGAR DIAGNOSTIC STRIP TEST SCH ×4 (05:54→23:24)
[2022-04-04] MEDS: INSULIN LISPRO 100 UNITS/ML SUBCUT SCH ×4 (05:59→23:25)
[2022-04-04 06:43] LABS: BASOPHILS % 1.2 % (0.0-2.0); EOSINOPHILS % 11.3 % (0.0-5.0); HEMATOCRIT. 24.3 % (42.0-52.0); LYMPHOCYTES % 18.3 % (20.0-50.0); MEAN CORPUSCULAR HEMOGLOBIN 32.8 pg (28.0-32.0); MEAN CORPUSCULAR VOLUME 99.6 fL (80.0-94.0); MONOCYTES % 10.5 % (2.0-8.0); NEUTROPHILS % 58.7 % (40.0-76.0); PLATELET 406 x1000/uL (130-400); RED BLOOD CELL COUNT 2.44 mill/uL (4.7-6.1); RED CELL DISTRIBUTION WIDTH 19.3 % (11.6-14.6)
[2022-04-04] MEDS: AMLODIPINE 5MG TABLET PO SCH ×2 (09:32→20:03)
[2022-04-04] MEDS: ASPIRIN 81MG EC TABLET PO SCH (09:32)
[2022-04-04] MEDS: BENAZEPRIL 10MG TABLET PO SCH ×2 (09:33→16:07)
[2022-04-04] MEDS: SODIUM BICARBONATE 50 MEQ in DEXT 5%/0.45% NACL 1000ML 1,000 ML IV SCH (09:33)
[2022-04-04] MEDS ORDERED: MIDAZOLAM HCL 2 MG/2 ML VIAL ONE (10:56)
[2022-04-04] MEDS ORDERED: FENTANYL CITRATE/PF 50MCG/ML 2ML VIAL ONE ×2 (10:56→13:59)
[2022-04-04] MEDS ORDERED: LIDOCAINE HCL 2% JELLY 5ML ONE (10:56)
[2022-04-04] MEDS ORDERED: TETRACAINE/BENZOCAINE/BUTAMBEN 20 GM SPRAY MM ONE (10:56)
[2022-04-04] MEDS ORDERED: HEPARIN 1000 UNITS/ML 10ML ONE (13:40)
[2022-04-04] MEDS ORDERED: LIDOCAINE HCL 1% 20ML VIAL (Pyxis) INJ ONE (13:40)
[2022-04-04] MEDS ORDERED: FENTANYL CITRATE/PF 50MCG/ML 2ML VIAL IV ONE (14:15)
[2022-04-04] MEDS ORDERED: IRON SUCROSE COMPLEX 100 MG/5 ML ML IV SCH (15:00)
[2022-04-04] MEDS: CEFAZOLIN 1000MG PREMIX 50 ML IV SCH ×2 (20:00→23:26)
[2022-04-04] MEDS ORDERED: EPOETIN ALFA-EPBX 4,000 UNIT/ML VIAL SUBCUT SCH (21:00)
[2022-04-04] MEDS: HYDRALAZINE 20MG/ML VIAL IV PRN (23:27)
[2022-04-04] MEDS: EPOETIN ALFA 4000UNITS/ML VIAL SUBCUT SCH (23:35)
[2022-04-05] VITALS: BP 138/57
[2022-04-05 00:11] VITALS: BP 138/57
== END 2022-04-05 00:38 | disposition home or self-care (01) | DRG 314 ==
LOC: ER 18:33 → 8WST 23:18 → ENRESERV 03-28 01:46
PROVIDERS: ADMIT Internal Medicine; ATTEND Internal Medicine
PROC: 5A1D70Z Performance of Urinary Filtration, Intermittent, Less than 6 Hours Per Day (ICD-10-PCS; 2022-03-28)
PROC: 0JPT3XZ Removal of Tunneled Vascular Access Device from Trunk Subcutaneous Tissue and Fascia, Percutaneous Approach (ICD-10-PCS; principal; 2022-03-29)
PROC: 02H633Z Insertion of Infusion Device into Right Atrium, Percutaneous Approach (ICD-10-PCS; 2022-03-29)
PROC: B548ZZA Ultrasonography of Superior Vena Cava, Guidance (ICD-10-PCS; 2022-03-29)
PROC: B5181ZA Fluoroscopy of Superior Vena Cava using Low Osmolar Contrast, Guidance (ICD-10-PCS; 2022-03-29)
PROC: 5A1D70Z Performance of Urinary Filtration, Intermittent, Less than 6 Hours Per Day (ICD-10-PCS; 2022-03-30)
PROC: 5A1D70Z Performance of Urinary Filtration, Intermittent, Less than 6 Hours Per Day (ICD-10-PCS; 2022-04-01)
PROC: 0JH63XZ Insertion of Tunneled Vascular Access Device into Chest Subcutaneous Tissue and Fascia, Percutaneous Approach (ICD-10-PCS; 2022-04-04)
PROC: 02HV33Z Insertion of Infusion Device into Superior Vena Cava, Percutaneous Approach (ICD-10-PCS; 2022-04-04)
PROC: B5181ZA Fluoroscopy of Superior Vena Cava using Low Osmolar Contrast, Guidance (ICD-10-PCS; 2022-04-04)
PROC: B548ZZA Ultrasonography of Superior Vena Cava, Guidance (ICD-10-PCS; 2022-04-04)
PROC: 5A1D70Z Performance of Urinary Filtration, Intermittent, Less than 6 Hours Per Day (ICD-10-PCS; 2022-04-04)
DX: T80.211A Bloodstream infection due to central venous catheter, initial encounter (principal); N18.6 End stage renal disease; A41.01 Sepsis due to Methicillin susceptible Staphylococcus aureus; I12.0 Hypertensive chronic kidney disease with stage 5 chronic kidney disease or end stage renal disease; I31.3 Pericardial effusion (noninflammatory); R64 Cachexia; J90 Pleural effusion, not elsewhere classified; D64.9 Anemia, unspecified; E11.22 Type 2 diabetes mellitus with diabetic chronic kidney disease; E87.5 Hyperkalemia; N40.0 Benign prostatic hyperplasia without lower urinary tract symptoms; E78.00 Pure hypercholesterolemia, unspecified; E78.5 Hyperlipidemia, unspecified; F51.04 Psychophysiologic insomnia; K80.20 Calculus of gallbladder without cholecystitis without obstruction; R00.1 Bradycardia, unspecified; Y84.8 Other medical procedures as the cause of abnormal reaction of the patient, or of later complication, without mention of misadventure at the time of the procedure; Z82.49 Family history of ischemic heart disease and other diseases of the circulatory system; Y92.89 Other specified places as the place of occurrence of the external cause; Z99.2 Dependence on renal dialysis; Z79.4 Long term (current) use of insulin; Z83.3 Family history of diabetes mellitus; Z79.899 Other long term (current) drug therapy; Z68.25 Body mass index [BMI] 25.0-25.9, adult
CPT/HCPCS: 36415; 36556; 36558; 36589; 71045; 74176; 76937; 77001; 80048; 80053; 80202; 82962; 83036; 83880; 84132; 84145; 85025; 86705; 86709; 86803; 87070; 87077; 87186; 87340; 87426; 93005; 93306; 93312; 99152; 99153; 99291; C1750; C1752; C1769; C1887; J0360; J0690; J0692; J0885; J1644; J1815; J2250; J2405; J2765; J3010; J3370; J3490; J7060; L8514; G0500

== ENCOUNTER 2022-05-18 11:05 | Inpatient (IN) | payer OTHER, MEDICAID ==
[~2022-05-18] VITALS: Ht 152.4 cm; Wt 57.2 kg
[~2022-05-18 11:05] MED LIST changes: +AMLO5TAB88 PO; +ASPI-1497 MT; +CLON0.1T PO; +CLON0.2T PO; +DUTA0.5C37 PO; +FERR325T6 PO; +ONDA4TAB50 MT; +PHEN-910 PO; +TAMS-11 PO; +VALS160T28 PO
[2022-05-18 12:26] LABS: HEMATOCRIT. 36.4 % (42.0-52.0); HEMOGLOBIN. 12.1 g/dL (14.0-18.0); MEAN CORPUSCULAR HEMOGLOBIN 33.4 pg (28.0-32.0); MEAN CORPUSCULAR VOLUME 100.6 fL (80.0-94.0); MEAN PLATELET VOLUME 8.9 fl (7.4-10.4); PLATELET 172 x1000/uL (130-400); RED BLOOD CELL COUNT 3.62 mill/uL (4.7-6.1); RED CELL DISTRIBUTION WIDTH 15.5 % (11.6-14.6)
[2022-05-18 12:35] LABS: CHLORIDE 100 mEq/L (98-107)
[2022-05-18 12:38] LABS: INR 0.9; PROTHROMBIN TIME 10.2 sec (9.6-11.0)
[2022-05-18] MEDS ORDERED: CLONIDINE 0.1MG TABLET PO ONE ×2 (13:00→19:15)
[2022-05-18 13:37] LABS: ATYPICAL LYMPHOCYTES 1
[2022-05-18 13:38] LABS: PLATELET ESTIMATE NORMAL
[2022-05-18] MEDS ORDERED: SODIUM POLYSTYRENE SULFONATE 15 G/60 ML BOT PO ONE (15:30)
[2022-05-18] MEDS ORDERED: CLONIDINE 0.2MG TABLET PO ONE (21:15)
[2022-05-19] MEDS ORDERED: DEXTROSE 50% WATER 50ML SYRINGE IV PRN (07:00)
[2022-05-19 07:05] VITALS: BP 200/74
[2022-05-19] MEDS: BLOOD SUGAR DIAGNOSTIC STRIP TEST SCH ×4 (07:10→21:51)
[2022-05-19] MEDS: INSULIN LISPRO 100 UNITS/ML SUBCUT SCH ×4 (07:40→21:53)
[2022-05-19 08:00] VITALS: BP 199/100
[2022-05-19] MEDS: INSULIN GLARGINE 100 UNITS/ML SUBCUT SCH ×2 (10:19→21:54)
[2022-05-19] MEDS: CLONIDINE 0.2MG TABLET PO PRN ×2 (10:20→15:48)
[2022-05-19 12:00] VITALS: BP 141/78
[2022-05-19] MEDS: DUTASTERIDE 0.5MG CAPSULE PO SCH (13:00)
[2022-05-19 13:35] LABS: HEPATITIS B SURFACE ANTIGEN NEGATIVE
[2022-05-19 16:00] VITALS: BP 183/81
[2022-05-19] MEDS: BENAZEPRIL 10MG TABLET PO SCH (16:25)
[2022-05-19 18:12] VITALS: BP 134/68
[2022-05-19 20:00] VITALS: BP 182/65
[2022-05-20] VITALS: BP 191/79
[2022-05-20] MEDS: CLONIDINE 0.2MG TABLET PO PRN ×2 (00:24→12:43)
[2022-05-20 04:00] VITALS: BP 173/67
[2022-05-20] MEDS: INSULIN LISPRO 100 UNITS/ML SUBCUT SCH ×3 (06:07→17:35)
[2022-05-20] MEDS: BLOOD SUGAR DIAGNOSTIC STRIP TEST SCH ×3 (06:07→17:50)
[2022-05-20 07:51] VITALS: BP 186/73
[2022-05-20] MEDS: BENAZEPRIL 10MG TABLET PO SCH ×2 (08:38→17:36)
[2022-05-20] MEDS ORDERED: FUROSEMIDE 20MG TABLET PO SCH (09:00)
[2022-05-20] MEDS ORDERED: ASPIRIN 81MG EC TABLET PO SCH (09:00)
[2022-05-20] MEDS ORDERED: AMLODIPINE 5MG TABLET PO SCH (09:00)
[2022-05-20] MEDS ORDERED: TAMSULOSIN HCL 0.4MG SR CAPSULE PO SCH (09:00)
[2022-05-20] MEDS: INSULIN GLARGINE 100 UNITS/ML SUBCUT SCH (11:25)
[2022-05-20 12:00] VITALS: BP 196/84
[2022-05-20] MEDS ORDERED: AMLO10TA4 MT (14:15)
[2022-05-20] MEDS ORDERED: HYDRALAZINE 20MG/ML VIAL IV NR (14:15)
[2022-05-20] MEDS ORDERED: HYDR-4134 MT (14:15)
[2022-05-20] MEDS ORDERED: AMLODIPINE 5MG TABLET PO NR (14:15)
[2022-05-20 16:00] VITALS: BP 139/77
[2022-05-20] MEDS: DUTASTERIDE 0.5MG CAPSULE PO SCH (17:35)
[2022-05-20 18:15] VITALS: BP 139/77
== END 2022-05-20 19:00 | disposition home or self-care (01) | DRG 314 ==
LOC: ER 11:05 → MICUSO 21:45 → 8WST 05-19 06:00
PROVIDERS: ADMIT Internal Medicine; ATTEND Internal Medicine
PROC: 5A1D70Z Performance of Urinary Filtration, Intermittent, Less than 6 Hours Per Day (ICD-10-PCS; principal; 2022-05-18)
PROC: 5A1D70Z Performance of Urinary Filtration, Intermittent, Less than 6 Hours Per Day (ICD-10-PCS; 2022-05-20)
DX: T82.848A Pain due to vascular prosthetic devices, implants and grafts, initial encounter (principal); N18.6 End stage renal disease; E46 Unspecified protein-calorie malnutrition; I12.0 Hypertensive chronic kidney disease with stage 5 chronic kidney disease or end stage renal disease; I16.0 Hypertensive urgency; E87.5 Hyperkalemia; E87.70 Fluid overload, unspecified; Z20.822 Contact with and (suspected) exposure to COVID-19; E11.22 Type 2 diabetes mellitus with diabetic chronic kidney disease; E78.00 Pure hypercholesterolemia, unspecified; N40.0 Benign prostatic hyperplasia without lower urinary tract symptoms; Y84.8 Other medical procedures as the cause of abnormal reaction of the patient, or of later complication, without mention of misadventure at the time of the procedure; Z79.899 Other long term (current) drug therapy; Z99.2 Dependence on renal dialysis; Z83.3 Family history of diabetes mellitus; Z82.49 Family history of ischemic heart disease and other diseases of the circulatory system; Z68.24 Body mass index [BMI] 24.0-24.9, adult; Y92.89 Other specified places as the place of occurrence of the external cause
CPT/HCPCS: 36415; 71045; 80048; 80053; 82962; 83036; 85025; 86705; 86709; 86803; 87340; 87426; 93971; 99285; C9803; J1815